=== PATIENT | female | born 1940 | race Caucasian/White ===

== ENCOUNTER → 2020-03-08 10:49 | Outpatient (CLI) | payer MEDICARE, SELFPAY ==
--- NOTE | ~2020-03-08 | XR_ITS ---
XR chest 2V 03/08/2020 11:22 Indication: Shortness of breath Procedure: 2 view chest Comparison: 05/20/2004 Findings: Cardiomegaly. Mild interstitial edema. No pleural effusion or pneumothorax. No acute osseou s abnormality. Impression: 1: Cardiomegaly with mild interstitial edema. Atypical pneumonia less favored. Reviewed, dictated and finalized at location A. Impression: 1: Cardiomegaly with mild interstitial edema. Atypical pneumonia less favored.
== END ==
PROVIDERS: PCP Family Medicine; Visit Provider Family Medicine
DX: R06.02 Shortness of breath (principal); I51.7 Cardiomegaly
CPT/HCPCS: 71046